=== PATIENT | male | born 1935 | race Caucasian/White ===

== ENCOUNTER 2024-02-21 08:40 | Inpatient (IN) | payer MEDICARE, MEDICAID, SELFPAY ==
[2024-02-21] VITALS (15 sets, daily range): BP systolic 101–159; BP diastolic 56–95; PULSE 51–81; RESP 14–28; TEMP 35.6–36.7; O2SAT 86–98; BMI 18.7; BMI 21.7
--- NOTE | 2024-02-21 09:11 | EKG_ITS ---
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
--- NOTE | 2024-02-21 09:12 | PD.EDNV ---
Nausea/Vomit./Diarrhea-RME/HPI General Chief complaint: Nausea/Vomiting/Diarrhea Stated complaint: N/V Time Seen by Provider: 02/21/24 09:11 Arrival date/time: 02/21/24 08:40 RME / HPI RME / HPI Narrative: DR. NUNEZ MAIN ED EVALUATION: 88 year old male presents to the Emergency Department [facility] with complaints of nausea and vomiting. Symptoms are moderate. Patient is also altered, no no ROS obtainable from patient. PMHx: Dementia, chronic atrial fibrillation, CVA, anemia, HTN, and hypercholesterolemia. Marrero catheter in place for 4 years. Social Hx: Lives at [facility]. Code Status: DNR, DNI Related Data Home Medications ?Medication ?Instructions ?Recorded ?Confirmed atorvastatin 40 mg tablet 40 mg PO QDAY 05/15/22 05/15/22 dutasteride 0.5 mg capsule 0.5 mg PO QDAY 05/15/22 05/15/22 fluticasone propionate 220 2 puff inhalation BID 05/15/22 05/15/22 mcg/actuation HFA aerosol inhaler metoprolol succinate 25 mg 25 mg PO QDAY 05/15/22 05/15/22 tablet,extended release 24 hr midodrine 5 mg tablet 5 mg PO TID 05/15/22 05/15/22 rivaroxaban 15 mg tablet (Xarelto) 15 mg PO QDAY 05/15/22 05/15/22 spironolactone 25 mg tablet 25 mg PO HS 05/15/22 05/15/22 tamsulosin 0.4 mg capsule 0.4 mg PO QDAY 05/15/22 05/15/22 tramadol 50 mg tablet 50 mg PO Q6H PRN Pain 05/15/22 05/15/22 Previous Rx's ?Medication ?Instructions ?Recorded levofloxacin 500 mg tablet 500 mg PO QDAY #7 tabs 01/14/23 Allergies Allergy/AdvReac Type Severity Reaction Status Date / Time No Known Allergies Allergy Verified 01/14/23 16:35 Review of Systems Review of Systems ROS Unobtainable: unobtainable due to mental status Past Medical History Past Medical History NEUROLOGIC: Positive Transient Ischemic Attacks (TIA) CARDIAC: Positive Atrial Fibrillation and Hypercholesterolemia; Negative Congestive Heart Failure RESPIRATORY: Positive Chronic Obstructive Pulmonary Disease (COPD) and Asthma GENITOURINARY: Positive Genitourinary Disorders (retention) and Benign Prostatic Hyperplasia (marrero cath); Negative Renal Disease ENDOCRINE: Negative Diabetes Mellitus Type 1 or Diabetes Mellitus Type 2 HEMATOLOGIC: Positive Anemia PSYCHO/SOCIAL: Positive Anxiety OTHER HISTORY: Positive Falls Social History SMOKING STATUS: Unknown if ever smoked SUBSTANCE USE: does not use ED Exam Narrative Physical exam: GENERAL APPEARANCE: Well hydrated, well nourished, in respiratory acute distress. Nonverbal, not following commands, no eye opening. VITALS: All vitals were reviewed and the pulse ox is 86% on 4 L/min via a nasal cannula. HEENT: Normocephalic, atramatic, EACs are patent. Pupils are big and dilated, left one bigger probably secondary to cataract surgery. There is no bulge or retraction. Throat without erythema or exudate. Moist oromucosa. No jaundice NECK: Supple, no JVD or bruits. CARDIOVASCULAR: Heart regular without S3-S4 or murmur. No rubs or gallops. LUNGS/CHEST: Tachypneic, in respiratory distress. ABDOMEN: Soft, nontender, with normal bowel sounds. No pulsatile masses. No rebound, rigidity, or guarding. No incarcerated hernia. Normal inspection and palpation. EXTREMITIES: No edema, clubbing, or cyanosis. Intact CSM. Normal inspection and palpation. SKIN: Warm and dry without rashes. Normal inspection. MUSCULOSKELETAL: No gross deformity. NEURO: Nonverbal, not following commands, no eye opening. GCS of 5-6. PSYCHIATRIC: Unobtainable. Course Quality Measures none Orders Category Date Time Status Paper Sealer Q4H START 00 Care 02/21/24 09:11 Active EKG (ED ONLY) *Do not use* NOW Care 02/21/24 09:13 Completed Saline [Insert IV] NOW Care 02/21/24 09:11 Active EKG (ED Only) Stat Exams 02/21/24 09:11 Draft XR chest 1V portable Stat Exams 02/21/24 09:11 Completed BNP [B-Type Natriuretic Peptide] Stat Lab 02/21/24 09:35 Completed CBC Stat Lab 02/21/24 09:35 Completed CMP [Comprehensive Metabolic Panel] Stat Lab 02/21/24 09:35 Completed Troponin I Stat Lab 02/21/24 09:35 Completed Venous Blood Gas Stat Lab 02/21/24 09:35 Completed ALBUTEROL RT 0.5ml [Proventil Rt 0.5ml] Med 02/21/24 09:11 Discontinued 10 mg HHN X1 ONE MethylPREDNISolone.* [SoluMEDROL Inj] Med 02/21/24 09:11 Discontinued 250 mg IVP X1 ONE Sodium Chloride Rt Ramandeep 0.9% [NS Rt Ramandeep 0.9%] Med 02/21/24 09:11 Active 3 ml INH PRN PRN BiPAP / CPAP NOW RT 02/21/24 09:11 Active Vital Signs Vital signs: Vital Signs Temperature 97.6 F 02/21/24 08:45 Pulse Rate 62 02/21/24 08:45 Respiratory Rate 18 02/21/24 08:45 Blood Pressure 148/95 H 02/21/24 08:45 Pulse Oximetry (%) 86 L 02/21/24 08:45 Oxygen Delivery Method Nasal Cannula 02/21/24 08:45 Oxygen Flow Rate 4 02/21/24 08:45 Nausea/Vomiting/Diarrhea MDM Narrative MDM Narrative:: I, Kassy Barton, irene scribing for and in the presence of Dr. Nunez. CBC white count of 16,000. Venous blood gas is unremarkable. Showing no sign of CO2 retention. BUN 25 may be cellulitic with dehydration. The rest of CMP is negative. BNP is negative. Troponin negative. Chest x-ray interpreted by me: No change from 2022 chest x-ray. Namely pulmonary fibrosis. Atelectasis. Heart is about the same size. Mediastinum normal. Normal bones. No CHF. No infiltrate. No pleural effusion. Twelve-lead EKG that was done at 10 0 9 AM interpreted by me: Normal sinus rhythm. Heart rate of 66. Right bundle branch block. No ST elevation. No ST depression. No PVC. No STEMI. Regular rate and rhythm. A lot of motion artifact. The patient was put on a BiPAP treatment by me as well as a 10 mg of albuterol continuous treatment as well as Solu-Medrol. The patient did very well. And he seemed to be improving with the treatment. He is a little more alert. He kept his hands up when I raise them up. He did not immediately drop hands to the gurney like he did initially. He did withdraw both feet and legs strongly when being tickled, stronger than initially. I did verify his CODE STATUS. According to the advanced directive from the [facility]. He is DNR. 11:35 AM, I spoke to and discussed with , resident of Dr. Cerda. He agreed to admit the patient for further evaluation and treatment. Thank you Critical care time is approximately 35 minutes excluding any procedure. The high probability of sudden, clinically significant deterioration in the patient?s condition required the highest level of my preparedness to intervene urgently. The services I provided to this patient were to treat and/or prevent clinically significant deterioration. Services included the following: chart data review, reviewing nursing notes and/or old charts, documentation time, python consultant collaboration regarding findings and treatment options, medication orders and management, direct patient care, vital sign assessments and ordering, interpreting and reviewing diagnostic studies and lab tests. Aggregate critical care time includes only time during which I was engaged in work directly related to the patient?s care, as described above, whether at bedside or elsewhere in the Emergency Department. It did not include time spent performing other reported procedures or the services of residents, students, nurses or physician assistants. Patient data External records reviewed:: [facility] previous records (Reviewed last ED visit dated 01/14/23, discharged with the following: Epididymitis.), EMS form and Shelter records Clinical information provided by:: EMS Social determinants that could affect healthcare access:: housing (Lives at [facility].) Patient has the following chronic illnesses:: Dementia, chronic atrial fibrillation, CVA, anemia, HTN, and hypercholesterolemia. Marrero catheter in place for 3 years. Code Status: DNR, DNI How is presenting disease/condition affected by chronic disease/condition?: exacerbated by Evaluation data The following diagnostics were reviewed and interpreted by me:: lab results, radiology exam(s) and EKG tracing(s) Lab and/or radiology exams considered but not ordered:: none Interpretation Summary: See above under MDM narrative. RADIOLOGY Procedure(s): XR chest 1V portable Accession Number(s): [id number] cc: Dionicio Coronado MD; Wilbert Nunez MD~ Examination: AP chest single view Technique: AP sitting portable chest single view Exam date and time: February 21, 2024 0923 hrs. Comparison May 14, 2022 Indications: Shortness of breath chest pain today. Findings: Extensive abnormal interstitial disease throughout the lungs Mild prominence left ventricle Moderate hyperexpansion Prominent osteopenia Impression: Again noted severe interstitial disease throughout the lungs, differential would include pulmonary fibrosis and chronic infiltrates, clinical correlation advised Dictated By: Dionicio Coronado MD Medications / Prescriptions Medications / Prescriptions considered but not ordered:: none Medication administrations:: Medication Administration History Sodium Chloride (Sodium Chloride Rt Ramandeep 0.9% 3 Ml Nebu) 3 ml INH PRN PRN PRN Reason: SOLN Stop: 03/22/24 09:10 Last Admin: 02/21/24 09:42 Dose: 3 ml Documented By: EV Discontinued Medications Albuterol (Albuterol Rt 2.5 Mg/0.5 Ml Nebu) 10 mg HHN X1 ONE Stop: 02/21/24 09:12 Last Admin: 02/21/24 09:42 Dose: 10 mg Documented By: EV Methylprednisolone Sodium Succinate (Methylprednisolone Sod Succ 62.5 Mg/Ml 2ml Vial) 250 mg IVP X1 ONE Stop: 02/21/24 09:12 Last Admin: 02/21/24 09:23 Dose: 250 mg Documented By: TM see above if any Consultations Consultation(s) initiated? (list below): Yes Consultation #1 (Physician, Specialty, Details): Discussed test HPI, PMHx, lab, radiology results and/or management with hospitalist. Will admit for further evaluation and management. Accepts patient for admission. Time: 11:33 Diagnosis Nausea Differential Diagnosis: dehydration and other (COPD. Pulmonary fibrosis. Hypoxia. DNR.) Most likely diagnosis given after review of the tests above:: COPD. Pulmonary fibrosis. Hypoxia. DNR. Admission Indicated Admission indicated?: indicated Admission Request Was there a request for admission?: Yes Admission Attestation Admission request attestation: Discussed case with [] from Hospitalist service regarding admission. Discussed patients ED course, exam findings, labs, and radiology results. The Hospitalist [agrees,declines] to accept the patient for admission. Disposition Plan Disposition Plan: Admit Discharge Plan Plan Patient Disposition: Admit Acute Care w/in Hospital Disposition Comment: Stable and improved Prescriptions/Referrals Prescriptions/Med Rec: No Action atorvastatin 40 mg tablet 40 mg PO QDAY Patient Comments: take 1 tablet by mouth once daily midodrine 5 mg Tablet 5 mg PO TID Rx Instructions: do not give last dose of day after 6PM or within 4 hrs of bedtime tramadol 50 mg Tablet 50 mg PO Q6H PRN (Reason: Pain) spironolactone 25 mg Tablet 25 mg PO HS tamsulosin 0.4 mg Capsule 0.4 mg PO QDAY fluticasone propionate 220 mcg/actuation HFA aerosol inhaler 2 puff INHALATION BID Patient Comments: inhale 2 puffs by mouth and INTO THE LUNGS twice a day metoprolol succinate 25 mg Tablet Extended Release 24 Hr 25 mg PO QDAY dutasteride 0.5 mg Capsule 0.5 mg PO QDAY Xarelto 15 mg tablet 15 mg PO QDAY Patient Comments: take 1 tablet by mouth once daily with food levofloxacin 500 mg tablet 500 mg PO QDAY Qty: 7 0RF Referrals: No Primary/Family,Physician [Primary Care Provider] - In 1 week Problem List Clinical Impression: COPD exacerbation, Hypoxia, Lethargy, DNR (do not resuscitate) Patient/Caregiver Discharge Instructions Print Language: Montenegrin Stand Alone Forms: Ruchi Award Info., Patient Portal Info Letter
[2024-02-21] MEDS: MethylPREDNISolone SOD SUCC 62.5 MG/ML 2ML VIAL 250 MG IVP (09:23)
--- NOTE | 2024-02-21 09:32 | PC.NURSE ---
Fellow RN covering this RN upon pts arrival and triaged pt. Upon this RNs assumption of care, fellow RN in room fixing pts o2 as pts spo2 dropped to 83, pt does have hx of COPD, provider came to bedside and ordered bi-pap. RT called for new RT orders. At this point pt is non-verbal, responding to sensation. Call mcintyre in reach. Rt at bedside
[2024-02-21 09:41] LABS: Base Excess, Venous -2 (-3-3); O2 Saturation, Venous 84 % (96-97); PCO2, Venous 39 mmHg (36-56); PO2, Venous 49 mmHg (15-58); pH, Venous 7.38 (7.33-7.66)
[2024-02-21] MEDS: SODIUM CHLORIDE RT SOL 0.9% 3 ML NEBU INH (09:42)
[2024-02-21] MEDS: ALBUTEROL RT 2.5 MG/0.5 ML NEBU 10 MG HHN (09:42)
[2024-02-21 10:02] LABS: Basophils % (Auto) 0 % (0-2.5); Eosinophils # (Auto) 0.4 Thou/mm3 (0.0-0.5); Eosinophils % (Auto) 3 % (0-10); Hematocrit 34.4 % (41.0-53.0); Hemoglobin 11.7 g/dL (13.5-16.0); Immature Granulocytes % (Auto) 0 % (0-0); Immature Granulocytes Auto 0.07 Thou/mm3 (0.00-0.00); Lymphocytes # (Auto) 1.5 Thou/mm3 (1.0-4.8); Lymphocytes % (Auto) 10 % (10-50); Mean Corpuscular Hemoglobin 33.5 pg (25.0-35.0); Mean Corpuscular Volume 99 fL (80-100); Monocytes # (Auto) 1.2 Thou/mm3 (0.0-0.8); Monocytes % (Auto) 8 % (0-12); Neutrophils # (Auto) 12.3 Thou/mm3 (1.8-7.7); Neutrophils % (Auto) 79 % (37-80); Nucleated Red Blood Cell % 0 /100 WBC (0); Platelet Count 304 Thou/mm3 (140-440); RDW Standard Deviation 51.8 fL (35.1-43.9); Red Blood Count 3.49 Miln/mm3 (4.50-5.90); White Blood Count 15.6 Thou/mm3 (3.8-10.6)
[2024-02-21 10:07] LABS: Alanine Aminotransferase 29 U/L (10-49); Albumin, Serum 3.3 gm/dL (3.4-4.8); Albumin/Globulin Ratio 0.8 (1.2-2.2); Alkaline Phosphatase 77 U/L (46-116); Anion Gap 8 (7-16); Aspartate Amino Transferase 46 U/L (0-34); BUN/Creatinine Ratio 23 Ratio (12-20); Bilirubin,Total 0.9 mg/dL (0.3-1.2); Blood Urea Nitrogen 25 mg/dL (9-23); Calcium 8.6 mg/dL (8.3-10.6); Calcium (Corrected) 9.2 mg/dL (8.5-10.1); Carbon Dioxide 22.1 mMol/L (20.0-31.0); Chloride 105 mMol/L (98-107); Creatinine (Component) 1.1 mg/dL (0.6-1.3); Estimated Creatinine Clearance 49.5 mL/min (>60); Globulin 3.9 gm/dL (2.3-3.5); Glucose 121 mg/dL (74-106); Osmolality,Calculated 275 (275-295); Potassium 3.7 mMol/L (3.4-5.1); Sodium 135 mMol/L (136-145); Total Protein 7.2 gm/dL (5.7-8.2); Troponin I < 0.020 ng/mL (0.0-0.045); eGFR > 60 See Note
[2024-02-21 10:28] LABS: B-Type Natriuretic Peptide 50 pg/mL (0-100)
--- NOTE | 2024-02-21 11:17 | PC.NURSE ---
Spoke w/brother Kingsley at this time, provided update. Per brother it is normal for pt to not respond and communicate, he picks who and when he responds to.
--- NOTE | 2024-02-21 12:17 | PC.NURSE ---
PT TOLERATING BI-PAP WELL AT THIS TIME, RR REMAINS ELEVATED, ALL OTHER VSS ON TELE AT THIS TIME.
--- NOTE | 2024-02-21 13:06 | XR_ITS ---
Examination: CT brain head without contrast. 2-D sagittal coronal reconstructions Date and time of exam:February 21, 2024 1337 hrs. Indications: Altered mental status today CTDI: vol (mGy):53.9 DLP: (mGycm):1195 Technique: Multiple CT axial sections of the brain have been obtained, 5 mm slice thickness. Contrast has not been administered. 2-D sagittal, coronal reconstructions have been obtained Low dose protocols were performed. One or more of the following dose reduction techniques were used; automated exposure control, adjustment of the mA and/or KV according to patient size, use of iterative reconstruction technique. Findings: Acute left subdural hematoma peripheral to the entire left cerebral hemisphere At the level of the lateral ventricles this acute subdural hematoma measures 20 mm in thickness There is severe mass effect shift of the frontal horns to the right at least 2 cm Ventricular hemorrhage is not evident At the level of the frontal horns the subdural hemorrhage measures at least 23 mm in thickness Ventricles are not enlarged The tonsils are not herniated No cranial vault appears intact Impression: Large acute left subdural hematoma peripheral to the entire left cerebral hemisphere Severe mass effect as above
--- NOTE | 2024-02-21 14:00 | PD.RESEVENT ---
Documentation for date of: 02/21/24 Event Note Event Note: . subdural
--- NOTE | 2024-02-21 14:06 | PC.NURSE ---
BROTHER LIZ CAN BE REACHED AT PHONE # . LIZ LIVES IN [place] UNSURE IF HE WILL BE ABLE TO MAKE IT DOWN HERE. THIS RN WAS PRESENT WITH PROVIDER WHEN LIZ WAS UPDATED ON CT RESULTS AND HEAD BROTHERS WISHES FOR HIM TO REMAIN DNR AND NO TRANSFER.
[2024-02-21] MEDS: MANNITOL 20% 250 ML IV (14:30)
[2024-02-21] MEDS: DEXAMETHASONE SOD PHOS INJ 4 MG/ML VIAL 10 MG IVP (14:30)
--- NOTE | 2024-02-21 14:31 | PD.EDADDENDU ---
Emergency Room Addendum Addendum Narrative: [facility] [address] [place] [address] [place] [facility] Report Signed Patient: ZAHIDA BRISENO. Record#: [id number] Birthdate: 1935 Age/Sex: 88 / M Location: [facility] Attending Dr: Ordering Physician: Wilbert Eagle MD Date of Service: 02/21/24 Procedure(s): CT head/brain wo con Accession Number(s): [id number] cc: Dionicio Coronado MD; NO PRIMARY/FAMILY,PHYSICIAN; Wilbert Eagle MD~ Examination: CT brain head without contrast. 2-D sagittal coronal reconstructions Date and time of exam:February 21, 2024 1337 hrs. Indications: Altered mental status today CTDI: vol (mGy):53.9 DLP: (mGycm):1195 Technique: Multiple CT axial sections of the brain have been obtained, 5 mm slice thickness. Contrast has not been administered. 2-D sagittal, coronal reconstructions have been obtained Low dose protocols were performed. One or more of the following dose reduction techniques were used; automated exposure control, adjustment of the mA and/or KV according to patient size, use of iterative reconstruction technique. Findings: Acute left subdural hematoma peripheral to the entire left cerebral hemisphere At the level of the lateral ventricles this acute subdural hematoma measures 20 mm in thickness There is severe mass effect shift of the frontal horns to the right at least 2 cm Ventricular hemorrhage is not evident At the level of the frontal horns the subdural hemorrhage measures at least 23 mm in thickness Ventricles are not enlarged The tonsils are not herniated No cranial vault appears intact Impression: Large acute left subdural hematoma peripheral to the entire left cerebral hemisphere Severe mass effect as above Dictated By: Dionicio Coronado MD Signed By: <Electronically signed by Dionicio Coronado MD in OV> 02/21/241426 DD/ 21 TD/TT: 02/21/241421 Brand Protection Manager: SELENA 2:05 PM, I spoke to discussed with next of kin Mr. Ham Briseno at [phone]. He was made aware of his brother condition namely very grave, severe head bleed. The next of kin Mr.Favian Briseno reiterated many times that the patient is DO NOT RESUSCITATE. He is aware that DO NOT RESUSCITATE status will make it extremely difficult for the patient to be transferred to the neurosurgeon. I also informed him that the patient may not survive here for more than 24 hours. He said that he has already made the decision and that is DO NOT RESUSCITATE. And he is aware that the patient himself may pass away in the next 24 hours. The speaker phone conversation was witnessed by patient's nurse Anila with Mr. Medeiros approval. I also notified resident hospitalist on-call. He said that we will present to his attending . He also added that he will speak to next of kin Mr. ham ma Directly on the phone.
[2024-02-21 15:09] LABS: Amphetamine/Methamp Scrn,U Negative (Negative); Barbiturate Screen,Urine Negative (Negative); Benzodiazepines Screen,Urine Negative (Negative); Benzoylecgonine Screen, Ur Negative (Negative); Fentanyl Screen,Urine Negative (Negative); Opiate Screen,Urine Negative (Negative); THC Screen,Urine Negative (Negative)
--- NOTE | 2024-02-21 16:00 | PC.NURSE ---
PT APPEARS COMFORTABLE AT THIS TIME
--- NOTE | 2024-02-21 16:18 | ESHP_ITS ---
Documentation for date of: 02/21/24 HPI History of Present Illness History of present illness: Patient is an 88-year-old male who was brought from [facility], past medical history pertinent for BPH with chronic indwelling Rodas, hypertension, hyperlipidemia and chronic A-fib on anticoagulation, TIA malnutrition, anemia, COPD, who came into the emergency room due to nausea and vomiting. Patient was altered at the time of evaluation and no history was obtainable. initially found to be hypoxic and was started on BiPAP by ER physician. Per ER physician notes, patient was able to keep his hands up when he raised him and was able to withdraw both feet and legs strongly when tickled, but at the time of evaluation by our team Patient was found to be obtunded with a GCS of 5/15, CT head was ordered which showed large subdural hematoma with midline shift. Patient's brother, Jackson Gordon was contacted who is the person to notify, who reported that patient had strongly expressed his wishes to be DNR and not to be brought back to life if anything were to happen. Given that patient's acute condition requires neurosurgical evaluation and possible surgery with decompression, otherwise risk of brain herniation and ultimate demise is seemingly imminent, family maintains they want to respect patient's wishes. After goals of care discussion, plan was made to admit the patient with comfort care measures. Family will be coming in from out of town to visit the patient tomorrow and say their final goodbyes. Review of Systems Review of Systems ROS Unobtainable: unobtainable due to mental status Past Medical History Past Medical History NEUROLOGIC: Positive Transient Ischemic Attacks (TIA) CARDIAC: Positive Atrial Fibrillation and Hypercholesterolemia; Negative Congestive Heart Failure RESPIRATORY: Positive Chronic Obstructive Pulmonary Disease (COPD) and Asthma GENITOURINARY: Positive Genitourinary Disorders and Benign Prostatic Hyperplasia; Negative Renal Disease ENDOCRINE: Negative Diabetes Mellitus Type 1 or Diabetes Mellitus Type 2 HEMATOLOGIC: Positive Anemia PSYCHO/SOCIAL: Positive Anxiety OTHER HISTORY: Positive Falls Social History SMOKING STATUS: Unknown if ever smoked SUBSTANCE USE: does not use Exam Vital Signs Temp Pulse Resp BP Pulse Ox O2 Del Method O2 Flow Rate 96.8 F 79 20 109/65 95 BiPAP 75 02/21/24 16:00 02/21/24 16:00 02/21/24 16:00 02/21/24 16:00 02/21/24 16:00 02/21/24 16:00 02/21/24 09:46 FiO2 50 02/21/24 13:52 Narrative Exam GENERAL: Frail elderly man, currently on BiPAP, nonresponsive to verbal or noxious stimuli obtunded, NEURO: GCS 5/15 HEENT: Dry mucosa. Eyes spontaneous open, asymmetrical pupils CARDIO: No chest pain on palpation. Irregular rhythm PULM: Bilateral crackles are heard on auscultation GI: Abdomen soft, nondistended, no pain on palpation. Scattered khan hemangiomas, epigastric scar noted SKIN/MSK/EXT: No wounds/rashes/edema/amputations, no pain on palpation, DRY. Pedal pulses present B/L Results: Labs 02/21/24 09:35 02/21/24 09:35 Labs: Short CBC 02/21/24 Range/Units 09:35 WBC 15.6 H (3.8-10.6) Thou/mm3 Hgb 11.7 L (13.5-16.0) g/dL Hct 34.4 L (41.0-53.0) % Plt Count 304 (140-440) Thou/mm3 BMP 02/21/24 09:35 Sodium 135 L Potassium 3.7 Chloride 105 Carbon Dioxide 22.1 BUN 25 H Creatinine 1.1 Glucose 121 H Calcium 8.6 Cardiac Enzymes 02/21/24 Range/Units 09:35 Troponin I < 0.020 (0.0-0.045) ng/mL Liver Function 02/21/24 Range/Units 09:35 Total Bilirubin 0.9 (0.3-1.2) mg/dL AST 46 H (0-34) U/L ALT 29 (10-49) U/L Alkaline Phosphatase 77 (46-116) U/L Albumin 3.3 L (3.4-4.8) gm/dL ABG Interpretation ABG results: 02/21/24 09:35 VBG pH 7.38 VBG pCO2 39 VBG pO2 49 VBG Base Excess -2 Quality Measures Quality Measures none Advance care planning discussed with:: patient Medications Home Medications and Allergies Home Medications ?Medication ?Instructions ?Recorded ?Confirmed ?Type atorvastatin 40 mg tablet 40 mg PO QDAY 05/15/22 05/15/22 History dutasteride 0.5 mg capsule 0.5 mg PO QDAY 05/15/22 05/15/22 History fluticasone propionate 220 2 puff inhalation BID 05/15/22 05/15/22 History mcg/actuation HFA aerosol inhaler metoprolol succinate 25 mg 25 mg PO QDAY 05/15/22 05/15/22 History tablet,extended release 24 hr midodrine 5 mg tablet 5 mg PO TID 05/15/22 05/15/22 History rivaroxaban 15 mg tablet (Xarelto) 15 mg PO QDAY 05/15/22 05/15/22 History spironolactone 25 mg tablet 25 mg PO HS 05/15/22 05/15/22 History tamsulosin 0.4 mg capsule 0.4 mg PO QDAY 05/15/22 05/15/22 History tramadol 50 mg tablet 50 mg PO Q6H PRN Pain 05/15/22 05/15/22 History Allergies Allergy/AdvReac Type Severity Reaction Status Date / Time No Known Allergies Allergy Verified 01/14/23 16:35 Visit Medications Acetaminophen (Acetaminophen 325 Mg Tablet) 650 mg PO Q6H PRN PRN Reason: PAIN OR FEVER > 101 Stop: 03/22/24 14:46 Morphine Sulfate (Morphine Sulfate Iv Drip 100mg/100ml) 100 mls @ 1 mls/hr IV Q50H PRN; Protocol PRN Reason: PAIN (COMFORT CARE) Stop: 02/26/24 16:12 Lorazepam (Lorazepam 2 Mg/Ml Vial) 1 mg IVP Q6HR PRN PRN Reason: AGITATION OR ANXIETY Stop: 02/26/24 14:48 Morphine Sulfate (Morphine Sulf Inj 10 Mg/Ml Vial) 2 mg IVP Q30M PRN PRN Reason: PAIN Stop: 02/26/24 14:48 Ondansetron HCl (Ondansetron Inj 2 Mg/Ml Inj 2 Ml) 4 mg IV Q6H PRN; Protocol PRN Reason: NAUSEA OR VOMITING Stop: 03/22/24 14:46 Scopolamine (Scopolamine 1 Mg Tdsy) 1 mg TOP Q3D NELLIE Stop: 03/22/24 14:59 Sennosides (Senna Tablet) 2 tab PO BID PRN; Protocol PRN Reason: CONSTIPATION Stop: 03/22/24 14:46 Sodium Chloride (Sodium Chloride Rt Ramandeep 0.9% 3 Ml Nebu) 3 ml INH PRN PRN PRN Reason: SOLN Stop: 03/22/24 09:10 Last Admin: 02/21/24 09:42 Dose: 3 ml Discontinued Medications Albuterol (Albuterol Rt 2.5 Mg/0.5 Ml Nebu) 10 mg HHN X1 ONE Stop: 02/21/24 09:12 Last Admin: 02/21/24 09:42 Dose: 10 mg Dexamethasone Sodium Phosphate (Dexamethasone Sod Phos Inj 4 Mg/Ml Vial) 10 mg IVP X1 ONE; Protocol Stop: 02/21/24 14:08 Last Admin: 02/21/24 14:30 Dose: 10 mg Mannitol (Mannitol Inj 20% Ivpb) 125 mls @ 250 mls/hr IV X1 ONE Stop: 02/21/24 14:59 Last Admin: 02/21/24 14:30 Dose: 250 mls/hr Methylprednisolone Sodium Succinate (Methylprednisolone Sod Succ 62.5 Mg/Ml 2ml Vial) 250 mg IVP X1 ONE Stop: 02/21/24 09:12 Last Admin: 02/21/24 09:23 Dose: 250 mg Assessment & Plan Plan Patient is an 88-year-old male who was brought from [facility], past medical history pertinent for BPH with chronic indwelling Rodas, hypertension, hyperlipidemia and chronic A-fib on anticoagulation, TIA malnutrition, anemia, COPD, who came into the emergency room due to nausea and vomiting. Patient was altered at the time of evaluation and no history was obtainable. initially found to be hypoxic and was started on BiPAP by ER physician. Per ER physician notes, patient was able to keep his hands up when he raised him and was able to withdraw both feet and legs strongly when tickled, but at the time of evaluation by our team Patient was found to be obtunded with a GCS of 5/15, CT head was ordered which showed large subdural hematoma with midline shift. #Goals of care Patient's brother, Jackson Gordon was contacted who is the person to notify, who reported that patient had strongly expressed his wishes to be DNR and not to be brought back to life if anything were to happen. Given that patient's acute condition requires neurosurgical evaluation and possible surgery with decompression, otherwise risk of brain herniation and ultimate demise is seemingly imminent, family maintains they want to respect patient's wishes. After goals of care discussion, plan was made to admit the patient with comfort care measures. Family will be coming in from out of town to visit the patient tomorrow and say their final goodbyes. #Subdural hematoma #History of atrial fibrillation- on Xarelto #History of BPH, chronic indwelling Rodas's #History of COPD CT shows large acute left subdural hematoma peripheral to the entire left cerebral hemisphere, Severe mass effect as above. ? Received mannitol and dexamethasone in the ER ? On comfort care measures ? IV morphine drip 1 Mg per hour, 2 mg morphine IV pushes if needed for pain ? IV lorazepam for Agitation and air hunger ? Scopolamine patch Plan of care discussed with my attending Dr. Aissatou Martinez Pgy2 Attending Provider Attestation/Addendum 88-year-old male with hypertension, hyperlipidemia, COPD and BPH on who is chronically dependent on Rodas catheter and atrial fibrillation on Xarelto presented to the ER with altered mentation and subsequently underwent CT head with findings of acute left subdural hematoma with severe mass effect. As a result, discussed goals of care with family and patient's family opted for comfort focused therapy and they are aware that this means that patient will likely deteriorate and will follow. Will respect her wishes on admission patient on comfort focused therapy. I reviewed above note and agree with findings and plans. I have also personally examined the patient with medicine team and went over assessment and plan with medical team including underwriting internship and resident physician.
[2024-02-21] MEDS: Morphine IV Drip 100mg/100ml 100 ML IV (17:45)
[2024-02-22 08:00] VITALS: BP 108/59; PULSE 73; RESP 20; TEMP 35.8; O2SAT 92
--- NOTE | 2024-02-22 09:12 | PC.SS ---
Follow up note: Pt is on from [facility]. Family will have Hospice discussion with pt and family today.
--- NOTE | 2024-02-22 10:39 | XR_ITS ---
Examination: CT brain head without contrast. 2-D sagittal coronal reconstructions Date and time of exam:February 22, 2024 1314 hours Comparison February 21, 2024 INDICATIONS: Altered mental status since yesterday, large acute subdural hematoma peripheral to the left cerebral hemisphere on CT study February 21, 2024 CTDI: vol (mGy):57.5 DLP: (mGycm):1283 Technique: Multiple CT axial sections of the brain have been obtained, 5 mm slice thickness. Contrast has not been administered. 2-D sagittal, coronal reconstructions have been obtained Low dose protocols were performed. One or more of the following dose reduction techniques were used; automated exposure control, adjustment of the mA and/or KV according to patient size, use of iterative reconstruction technique. Findings: No significant change in large acute subdural hematoma peripheral to the left cerebral hemisphere Shift of the frontal horns to the right again noted at least 23 mm Cranial vault intact Mild subdural hemorrhage along the left cerebellar tentorium stable IMPRESSION: No significant change in large acute subdural hematoma peripheral to the left cerebral hemisphere with severe mass effect
[2024-02-22 12:00] VITALS: BP 100/58; PULSE 70; RESP 16; TEMP 35.8; O2SAT 92
--- NOTE | 2024-02-22 14:19 | PC.SS ---
Addendum entered by Emma Inman 02/22/24 15:06: SS has sent Hospice order and inquiry to [facility]. SS has sent inquiry to [facility] using [facility]. Original Note: SS met with patient's brother, Jackson and sister who are requesting pt return to [facility] with [facility]. Pt is from [facility]. SS spoke to Fartun Lomax from [facility] and they prefer [facility]. SS informed patient's brother and sister they have choices for Hospice agencies. SS provided them with pamphlets for [facility], [facility], [facility], [facility], [facility], and [facility]. Brother, Jackson and Sister's choice is [facility] and they are requesting to speak with maintenance representative from Hospice. SS has coordinated with Kimberley Boyle from [facility] to meet with pt, brother, Jackson and sister at 4pm.
--- NOTE | 2024-02-22 14:52 | ESPR_ITS ---
Documentation for date of: 02/22/24 Subjective Subjective Interval history: Patient seen today at the bedside. No overnight events reported. Patient has a GCS of 13. Spoke to patient patient does not want to have any surgical intervention at this time. Family at bedside questions were answered. Head CT was repeated, no significant changes from the previous CT continues with severe mass effect. Hospice referral was sent. Patient is on comfort care, morphine drip was held at this time as patient looks comfortable. Will continue to monitor at this time. Exam Vital Signs Temp Pulse Resp BP Pulse Ox O2 Del Method O2 Flow Rate 96.5 F L 70 16 100/58 L 92 L Room Air 5 02/22/24 12:00 02/22/24 12:00 02/22/24 12:00 02/22/24 12:00 02/22/24 12:00 02/22/24 12:00 02/21/24 21:26 FiO2 50 02/21/24 13:52 Narrative Exam Physical Exam GENERAL: NAD, oriented to self HEENT: Moist mucosa. Eyes open, symmetrical, & clear CARDIO: Heart RRR, no obvious murmurs PULM: No noted coughing/dyspnea CTA B/L, no R/W/R GI: Abdomen soft, nondistended, no pain on palpation. BSx4 SKIN/MSK/EXT: No wounds/rashes/edema/amputations, no pain on palpation. Pedal pulses present B/L NEURO: GCS 13/15, able to move all 4 extremities Objective Labs 02/21/24 09:35 02/21/24 09:35 Labs: Laboratory Results - last 24 hr 02/21/24 14:49 Urine Opiates Screen Negative Urine Fentanyl Screen Negative Ur Barbiturates Screen Negative U Amphetamin/Meth Scrn Negative U Benzodiazepines Scrn Negative U Cocaine Metab Screen Negative U Marijuana (THC) Screen Negative ABG Interpretation ABG results: 02/21/24 09:35 VBG pH 7.38 VBG pCO2 39 VBG pO2 49 VBG Base Excess -2 Quality Measures Quality Measures none Advance care planning discussed with:: patient and sibling Assessment & Plan Assessment Current Active Medications: Generic Name Dose Route Start Last Admin Trade Name Freq PRN Reason Stop Dose Admin Acetaminophen 650 mg 02/21/24 14:47 Acetaminophen 325 Mg Tablet PO 03/22/24 14:46 Q6H PRN PAIN OR FEVER > 101 Morphine Sulfate 100 mls @ 1 mls/hr 02/21/24 16:13 02/21/24 17:45 Morphine Sulfate Iv Drip 100mg/100ml IV 02/26/24 16:12 1 mg/hr Q50H PRN 1 mls/hr PAIN (COMFORT CARE) Administration Protocol 1 MG/HR Lorazepam 1 mg 02/21/24 14:49 Lorazepam 2 Mg/Ml Vial IVP 02/26/24 14:48 Q6HR PRN AGITATION OR ANXIETY Morphine Sulfate 2 mg 02/21/24 14:49 Morphine Sulf Inj 10 Mg/Ml Vial IVP 02/26/24 14:48 Q30M PRN PAIN Ondansetron HCl 4 mg 02/21/24 14:47 Ondansetron Inj 2 Mg/Ml Inj 2 Ml IV 03/22/24 14:46 Q6H PRN NAUSEA OR VOMITING Protocol Scopolamine 1 mg 02/21/24 15:00 02/21/24 16:57 Scopolamine 1 Mg Tdsy TOP 03/22/24 14:59 Not Given Q3D NELLIE Sennosides 2 tab 02/21/24 14:47 Senna Tablet PO 03/22/24 14:46 BID PRN CONSTIPATION Protocol Sodium Chloride 3 ml 02/21/24 09:11 02/21/24 09:42 Sodium Chloride Rt Ramandeep 0.9% 3 Ml Nebu INH 03/22/24 09:10 3 ml PRN PRN Administration SOLN Plan 88-year-old male who was brought from [facility], past medical history pertinent for BPH with chronic indwelling Rodas, hypertension, hyperlipidemia and chronic A- fib on anticoagulation, TIA malnutrition, anemia, COPD, who came into the emergency room due to nausea and vomiting. Patient was altered at the time of evaluation and no history was obtainable. initially found to be hypoxic and was started on BiPAP by ER physician. Per ER physician notes, patient was able to keep his hands up when he raised him and was able to withdraw both feet and legs strongly when tickled, but at the time of evaluation by our team Patient was found to be obtunded with a GCS of 5/15, CT head was ordered which showed large subdural hematoma with midline shift. #Goals of care #Comfort care Patient's brother, Jackson Gordon was contacted who is the person to notify, who reported that patient had strongly expressed his wishes to be DNR and not to be brought back to life if anything were to happen. Given that patient's acute condition requires neurosurgical evaluation and possible surgery with decompression, otherwise risk of brain herniation and ultimate demise is seemingly imminent, family maintains they want to respect patient's wishes. After goals of care discussion, plan was made to admit the patient with comfort care measures. Family came today to see the patient hospice refferal was sent. #Subdural hematoma #History of atrial fibrillation- on Xarelto #History of BPH, chronic indwelling Rodas's #History of COPD CT shows large acute left subdural hematoma peripheral to the entire left cerebral hemisphere, Severe mass effect as above. Received mannitol and dexamethasone in the ER Repeat head CT showed no significant changes still with severe mass effect Patient today with GCS of 13/15, when spoken about any type of surgical intervention patient refused, family at bedside ? On comfort care measures - Hospice referral sent ? IV morphine drip 1 Mg per hour, on hold at this time as patient is comfortable - 2 mg morphine IV pushes if needed for pain ? IV lorazepam for Agitation and air hunger ? Scopolamine patch Case discussed with my senior Dr. Martinez PGY-[address] Aissatou Giles MD PGY-1 Senior resident attestation: Patient evaluated and examined at the bedside, this a.m. noted remarkable improvement in patient's mental status, GCS 13/15, patient was able to speak his name and give yes no answers, able to open eyes on command and move his extremities to some extent on command. Repeat CT head was done which showed no remarkable change in subdural hematoma or mass effect. Patient's family was at the bedside, goals of care discussion was held, questions and concerns were answered to satisfaction. Patient was offered transfer for neurosurgical intervention but he refused. Of note, patient continued to demonstrate waxing and waning mental status. After shared decision making with the family, plan was made to continue with comfort measures in line with patient's wishes. Patient will be discharged to [facility] to be continued with hospice. plan of care discussed with rest of the team including my attending physician, except as noted. Michelle PGY2 Attending Provider Attestation/Addendum 88-year-old male with hypertension, hyperlipidemia, COPD and BPH on who is chronically dependent on Rodas catheter and atrial fibrillation on Xarelto presented to the ER with altered mentation and subsequently underwent CT head with findings of acute left subdural hematoma with severe mass effect. As a result, discussed goals of care with family and patient's family opted for comfort focused therapy and they are aware that this means that patient will likely deteriorate and will follow. Will respect her wishes on admission patient on comfort focused therapy. I reviewed above note and agree with findings and plans. I have also personally examined the patient with medicine team and went over assessment and plan with medical team including employee communications intern and resident physician.
[2024-02-22 16:00] VITALS: BP 106/58; PULSE 72; RESP 16; TEMP 35.6; O2SAT 93
[2024-02-22 17:03] VITALS: PULSE 93; RESP 16; O2SAT 89
[2024-02-22 20:00] VITALS: BP 137/73; PULSE 104; RESP 16; TEMP 36; O2SAT 89
[2024-02-22 22:57] VITALS: PULSE 121; RESP 16; O2SAT 92
[2024-02-23] VITALS (8 sets, daily range): BP systolic 67–118; BP diastolic 42–64; PULSE 68–130; RESP 16–38; TEMP 35.9–37.2; O2SAT 82–90
[2024-02-23] MEDS: LORazepam 2 MG/ML VIAL 1 MG IVP (01:07)
[2024-02-23] MEDS: MORPHINE SULF INJ 10 MG/ML VIAL 2 MG IVP ×6 (02:34→14:55)
--- NOTE | 2024-02-23 02:38 | PC.NURSE ---
moistened mouth with glycerin swabs and lip moisturizer oral gel.
--- NOTE | 2024-02-23 04:42 | PC.NURSE ---
rn attempted to call brother Jackson cp#[phone] to notify of pt current condition status but no answer.
--- NOTE | 2024-02-23 07:02 | PC.NURSE ---
called Jackson Gordon(brother) cp#[phone]. Jackson's Zaida Gordon ( of Jackson) answered phone and notified rn Jackson is still asleep. Updated Philippe of pt current condition status bp=73/42, r=36, on 15L oxymask, not waking up. Clarified with Zaida aragon comfort care and they would like pt to be as comfortable as possible like what the doctor said yesterday, and yes we want comfort care.
[2024-02-23] MEDS: Morphine IV Drip 100mg/100ml 100 ML IV ×2 (09:35→15:00)
--- NOTE | 2024-02-23 10:07 | PC.SS ---
SS update: no discharge planned for today as the patient is imminent per medical team and bed side nurse.
--- NOTE | 2024-02-23 14:46 | PC.SS ---
Addendum entered by CESAR Diaz 02/23/24 15:25: Updated Rafaela at [facility] and Kimberley with [facility]. Original Note: Rounding note: patient is imminent. Patient was started on morphine drip.
[2024-02-23] MEDS: SCOPOLAMINE 1 MG TDSY TOP (14:55)
--- NOTE | 2024-02-23 15:00 | ESPR_ITS ---
Documentation for date of: 02/23/24 Subjective Subjective Interval history: Patient seen today at the bedside found comfortable. Currently on comfort measures including IV morphine drip, morphine pushes. In the afternoon patient was found to have increased work of breathing, morphine drip will be adjusted to keep the patient comfortable. seems imminent likely in next 24-48hours. Exam Vital Signs Temp Pulse Resp BP Pulse Ox O2 Del Method O2 Flow Rate 98.1 F 121 H 28 H 71/42 L 87 L Oxy Mask 11 02/23/24 08:00 02/23/24 08:00 02/23/24 08:00 02/23/24 08:00 02/23/24 08:00 02/23/24 08:00 02/23/24 09:07 FiO2 50 02/21/24 13:52 Narrative Exam Physical Exam GENERAL: NAD, oriented to self HEENT: Moist mucosa. Eyes open, symmetrical, & clear CARDIO: Heart RRR, no obvious murmurs PULM: No noted coughing/dyspnea CTA B/L, no R/W/R GI: Abdomen soft, nondistended, no pain on palpation. BSx4 SKIN/MSK/EXT: No wounds/rashes/edema/amputations, no pain on palpation. Pedal pulses present B/L NEURO: GCS 13/15, able to move all 4 extremities Objective Labs 02/21/24 09:35 02/21/24 09:35 ABG Interpretation ABG results: 02/21/24 09:35 VBG pH 7.38 VBG pCO2 39 VBG pO2 49 VBG Base Excess -2 Quality Measures Quality Measures none Advance care planning discussed with:: patient Assessment & Plan Assessment Current Active Medications: Generic Name Dose Route Start Last Admin Trade Name Freq PRN Reason Stop Dose Admin Acetaminophen 650 mg 02/21/24 14:47 Acetaminophen 325 Mg Tablet PO 03/22/24 14:46 Q6H PRN PAIN OR FEVER > 101 Protocol Morphine Sulfate 100 mls @ 2 mls/hr 02/23/24 10:43 Morphine Sulfate Iv Drip 100mg/100ml IV 02/26/24 16:12 Q50H PRN PAIN (COMFORT CARE) Protocol 2 MG/HR Lorazepam 1 mg 02/21/24 14:49 02/23/24 01:07 Lorazepam 2 Mg/Ml Vial IVP 02/26/24 14:48 1 mg Q6HR PRN Administration AGITATION OR ANXIETY Morphine Sulfate 2 mg 02/21/24 14:49 02/23/24 14:55 Morphine Sulf Inj 10 Mg/Ml Vial IVP 02/26/24 14:48 2 mg Q30M PRN Administration PAIN Protocol Ondansetron HCl 4 mg 02/21/24 14:47 Ondansetron Inj 2 Mg/Ml Inj 2 Ml IV 03/22/24 14:46 Q6H PRN NAUSEA OR VOMITING Protocol Scopolamine 1 mg 02/21/24 15:00 02/23/24 14:55 Scopolamine 1 Mg Tdsy TOP 03/22/24 14:59 1 mg Q3D NELLIE Administration Sennosides 2 tab 02/21/24 14:47 Senna Tablet PO 03/22/24 14:46 BID PRN CONSTIPATION Protocol Sodium Chloride 3 ml 02/21/24 09:11 02/21/24 09:42 Sodium Chloride Rt Ramandeep 0.9% 3 Ml Nebu INH 03/22/24 09:10 3 ml PRN PRN Administration SOLN Plan 88-year-old male who was brought from [facility], past medical history pertinent for BPH with chronic indwelling Rodas, hypertension, hyperlipidemia and chronic A- fib on anticoagulation, TIA malnutrition, anemia, COPD, who came into the emergency room due to nausea and vomiting. Patient was altered at the time of evaluation and no history was obtainable. initially found to be hypoxic and was started on BiPAP by ER physician. Per ER physician notes, patient was able to keep his hands up when he raised him and was able to withdraw both feet and legs strongly when tickled, but at the time of evaluation by our team Patient was found to be obtunded with a GCS of 5/15, CT head was ordered which showed large subdural hematoma with midline shift. #Goals of care #Comfort care Patient's brother, Jackson Gordon was contacted who is the person to notify, who reported that patient had strongly expressed his wishes to be DNR and not to be brought back to life if anything were to happen. Given that patient's acute condition requires neurosurgical evaluation and possible surgery with decompression, otherwise risk of brain herniation and ultimate demise is seemingly imminent, family maintains they want to respect patient's wishes. After goals of care discussion, plan was made to admit the patient with comfort care measures. Family came today to see the patient hospice refferal was sent. #Subdural hematoma #History of atrial fibrillation- on Xarelto #History of BPH, chronic indwelling Rodas's #History of COPD CT shows large acute left subdural hematoma peripheral to the entire left cerebral hemisphere, Severe mass effect as above. Received mannitol and dexamethasone in the ER Repeat head CT showed no significant changes still with severe mass effect Patient today with GCS of 13/15, when spoken about any type of surgical intervention patient refused, family at bedside ? On comfort care measures - Hospice referral sent ? IV morphine drip 1 Mg per hour, on hold at this time as patient is comfortable - 2 mg morphine IV pushes if needed for pain ? IV lorazepam for Agitation and air hunger ? Scopolamine patch Case discussed with my senior Dr. Martinez PGY-[address] Aissatou Giles MD PGY-1 Senior resident attestation: Patient evaluated and examined at the bedside, this a.m. noted remarkable improvement in patient's mental status, GCS 13/15, patient was able to speak his name and give yes no answers, able to open eyes on command and move his extremities to some extent on command. Repeat CT head was done which showed no remarkable change in subdural hematoma or mass effect. Patient's family was at the bedside, goals of care discussion was held, questions and concerns were answered to satisfaction. Patient was offered transfer for neurosurgical intervention but he refused. Of note, patient continued to demonstrate waxing and waning mental status. After shared decision making with the family, plan was made to continue with comfort measures in line with patient's wishes. Patient seen today with agonal breathing, on 15 L of oxygen, requiring as needed morphine pushes, resumed patient's morphine drip. Given the clinical situation, patient is demise seems imminent, we will withhold the discharge, and continue with inpatient comfort care. plan of care discussed with rest of the team including my attending physician, except as noted. Michelle PGY2
--- NOTE | 2024-02-23 21:53 | PC.NURSE ---
6L/min O2 inh via oxymask- decreased to 4L/min.
--- NOTE | 2024-02-23 23:04 | PC.NURSE ---
called Jackson Gordon (brother) no answer. Zaida Gordon ( of Jackson) called back rn. Zaida notified rn Jackson is already asleep. Updated Zaida pt bp=69/48, updated re plan of care. Mortuary choice for pt: [facility] in [facility] and the person in charge at [facility] is Nancy Kaufman, tel#[phone].
--- NOTE | 2024-02-24 00:03 | PC.NURSE ---
O2 inh on at 4L/min via oxymask- decreased to 2L/min.
--- NOTE | 2024-02-24 00:40 | PC.NURSE ---
sat in pt's room from 00:06am to 00:39am.
--- NOTE | 2024-02-24 02:00 | PC.NURSE ---
total morphine drip intake for night shift manager= 16.49ml
--- NOTE | 2024-02-24 02:06 | PD.DPN ---
Documentation for date of: 02/24/24 Pronouncement Note Date and Time of Date of : 02/24/24 Time of : 01:51 PCOD Preliminary cause of : Respiratory arrest Contributing Factors (1) Subdural hematoma: Summary Additional details: Received call from RN for patient noted no further pulse or respirations. Patient was seen and examined at the bedside, no pulses could be felt, no cardiac sounds were heard after 2 continuous minutes of auscultation, no breath sounds heard, and pupils were fixed and dilated. Patient pronounced at 01:51. Patient plan of care was discussed with the attending physician, Dr. Maria. Emily Webb, PGY-2 Additional Data Confirmation of : no pulse, no respirations, no heart sounds and pupils fixed and dilated Family: contacted Attending/PCP notified?: Yes Attending physician: Morgan Maria MD Was code activated?: No Autopsy requested?: No finished yarn examiner notified?: No Organ bank notified?: No Advance directives: Yes
--- NOTE | 2024-02-24 02:32 | PC.NURSE ---
called Jackson Gordon(brother) to notify of pt passing, no answer. Left message of tel# to call back rn.
--- NOTE | 2024-02-24 02:49 | PC.NURSE ---
called [facility] staff and notified of pt passing away.
--- NOTE | 2024-02-24 04:04 | PC.NURSE ---
called Jackson(brother), no answer.
[2024-02-24 05:06] VITALS: PULSE 130; RESP 83
--- NOTE | 2024-02-24 07:36 | DES_ITS ---
Documentation for date of: 02/24/24 Summary Date and Time Date of admission: 02/21/24 14:59 Summary Hospital Course: Mr. Gordon was an 88-year-old male with past medical history of BPH with chronic indwelling Rodas catheter, hypertension, hyperlipidemia chronic atrial fibrillation on anticoagulation, TIA, malnutrition, anemia, COPD who was a resident of a long term facility brought in to [facility] with a chief complaint of nausea and vomiting. On initial presentation patient was found to be altered so no history was able to be obtained from him. Patient was able to follow commands initially by ER physician but later when hospitalist team was consulted patient was found to have a GCS of 5 so decision was made to order a CT head. CT head for the patient revealed a large subdural hematoma that resulted in a midline shift indicating need for immediate neurosurgical intervention. Patient's brother Jackson Gordon was consulted due to the fact the patient was obtunded and unable to give consent and he was listed as the person to notify in the patient's chart and he suggested that the patient had a strong expressed desire to remain as a DNR and he does not want to have life-saving interventions or be brought back to life if anything were to happen. Patient received mannitol and IV steroids in the emergency department to assist with cerebral edema and with this given information hospitalist team decided to admit the patient under comfort care measures and ensure that the patient is comfortable in the event of brain matias iation. Patient was also found to be hypoxic likely due to the hematoma so he was placed upon oxygen and a hospice team was consulted. Patient was initially comfortable so morphine was withheld but with time he developed a Gunnell respirations and was becoming hypoxic so decision was made to start the patient on a morphine drip that was titrated up based upon protocol. He required pushes of morphine as well due to the agonal respirations and air hunger that he was demonstrating. Overnight the patient at 1:51 AM where a pronouncement note was done by Dr. Valencia. Patient's expiration is likely cardiopulmonary arrest due to subdural hematoma which was requested to have none neurosurgical intervention. Patient comfortably without complaints. Condolences were offered to the family and we regret their loss. Bruna Martinez M.D. PGY-3 Attending's attestation: I reviewed labs, imaging, EKG, home medications and prior available records. I reviewed the resident note and agree with the plan with exceptions as below. Cause of is acute hypoxic respiratory failure large subdural hematoma with midline shift, etiology is unclear. Contributing factors includes atrial fibrillation on Xarelto and COPD. Patient is comfort care only status for which no code was activated. Additional Data Confirmation of as documented by pronouncing clinician: no pulse, no respirations, no heart sounds and pupils fixed and dilated Family: contacted Attending/PCP notified?: Yes Attending physician: Norris Reyez MD Was code activated?: No Autopsy requested?: No disability examiner notified?: No Organ bank notified?: Yes Advance directives: Yes Hospice patient?: Yes Visit Providers Provider Primary care physician: Physician No Primary/Family Consults: 02/21/24 14:54 Referral Hospice Urgent Comment: 02/22/24 12:05 Referral Hospice Stat Comment: Diagnosis Contributing Factors (1) Subdural hematoma: Discharge Plan Plan Patient Disposition: Prescriptions/Referrals Referrals: No Primary/Family,Physician [Primary Care Provider] - Patient/Caregiver Discharge Instructions Print Language: Romansh Discharge Order Discharge Orders: Discharge (Routine); Ordered 02/24/24 Ordered By: Emily Webb
== END 2024-02-24 01:51 | disposition expired | DRG 82 ==
LOC: SERX 11:42 → SERHOLD 15:03 → S3NX 17:15
PROVIDERS: Admitting Provider Internal Medicine; Emergency Provider Emergency Medicine; Visit Provider Internal Medicine
DX: S06.5XAA Traumatic subdural hemorrhage with loss of consciousness status unknown, initial encounter (principal); J96.01 Acute respiratory failure with hypoxia; I48.20 Chronic atrial fibrillation, unspecified; N40.0 Benign prostatic hyperplasia without lower urinary tract symptoms; I10 Essential (primary) hypertension; E78.00 Pure hypercholesterolemia, unspecified; Z86.73 Personal history of transient ischemic attack (TIA), and cerebral infarction without residual deficits; Z79.01 Long term (current) use of anticoagulants; R09.2 Respiratory arrest; X58.XXXA Exposure to other specified factors, initial encounter; Z66 Do not resuscitate; Z51.5 Encounter for palliative care; J44.9 Chronic obstructive pulmonary disease, unspecified; E78.5 Hyperlipidemia, unspecified
CPT/HCPCS: 36415; 70450; 71045; 80053; 80307; 82803; 83880; 84484; 85025; 87811; 93005; 94644; 94660; 96374; 99291; J1100; J2060; J2270; J2919; J3490; A9270